=== PATIENT | male | born 1960 | race Caucasian/White ===

== ENCOUNTER 2017-05-05 19:57 | Emergency (ER) | payer MEDICARE, MEDICAID ==
[~2017-05-05] VITALS: Ht 188 cm; Wt 88.5 kg
--- NOTE | 2017-05-05 20:30 | NUR ---
PT SELF PRESENTS TO ER BED 11 C/O CHRONIC L SHOULDER PAIN. PT APPEARS ANXIOUS, STATES BEEN TAKING VICODIN FOR PAIN MANAGEMENT. DENIES ANY RECENT TRAUMA. AWAITING MD BURT.
--- NOTE | 2017-05-05 20:33 | NUR ---
MALINDA BOSCH AT BEDSIDE FOR EVAL.
[2017-05-05] MEDS ORDERED: KETOROLAC TROMETHAMINE INJ 60 MG/2 ML VIAL IM ONE (21:00)
[2017-05-05] MEDS ORDERED: KETOROLAC TROMETHAMINE INJ 30 MG/ML VIAL ONE (21:08)
--- NOTE | 2017-05-05 22:02 | NUR ---
D/C IN STABLE CONDITION. PT LEFT PRESCRIPTION AND ACI.
[2017-05-05 22:03] VITALS: BP 140/97
== END 2017-05-05 22:03 | disposition home or self-care (01) ==
LOC: ER 19:57
DX: G89.29 Other chronic pain (principal); M25.512 Pain in left shoulder; I10 Essential (primary) hypertension; F31.9 Bipolar disorder, unspecified; Z98.890 Other specified postprocedural states; Z60.2 Problems related to living alone
CPT/HCPCS: A4606; J1885; Z7610